=== PATIENT | male | born 1980 | race African-American/Black ===

== ENCOUNTER 2020-12-14 01:18 | Emergency (ER) | payer OTHER ==
[~2020-12-14] VITALS: Ht 180.3 cm; Wt 165.0 kg
--- NOTE | 2020-12-14 01:34 | PHYS DOC ---
General Adult EDM: Chief Complaint: OVERDOSE HPI: HPI: 40-year-old AA male, present inmate from [facility], presents to the ED with concerns for multiple self-inflicted lacerations involving her left wrist and both upper thighs after pt cut himself with a razor blade. Patient's medications were found missing, concern for propanolol and ibuprofen overdose. Pt reports he was trying to kill himself and took his medications "sometime" last night. When asked if anything is bothering him he states "life." Unknown last tetanus. Review of Systems: Review of Systems: Constitutional: Denies fever or chills. [] Eyes: Denies change in visual acuity. [] HENT: Denies nasal congestion or sore throat. [] Respiratory: Denies cough or shortness of breath. [] Cardiovascular: Denies chest pain or edema. [] GI: Denies abdominal pain, nausea, vomiting, bloody stools or diarrhea. [] : Denies dysuria or hematuria Musculoskeletal: Denies back pain or joint pain. [] Integument: Denies rash or crepitus Neurologic: Denies headache, focal weakness or sensory changes. [] Endocrine: Denies polyuria or polydipsia. [] Lymphatic: Denies swollen glands. [] Psychiatric: Denies depression or anxiety. [] Heart Score: Risk Factors: Risk Factors: DM, Current or recent (<one month) smoker, HTN, HLP, family history of CAD, obesity. Risk Scores: Score 0 - 3: 2.5% MACE over next 6 weeks - Discharge Home Score 4 - 6: 20.3% MACE over next 6 weeks - Admit for Clinical Observation Score 7 - 10: 72.7% MACE over next 6 weeks - Early Invasive Strategies Allergies: Allergies: Allergies Coded Allergies Type Severity Reaction Last Updated Verified No Known Drug Allergies 12/14/20 No Physical Exam: PE: Constitutional: Well developed, well nourished, no acute distress, non-toxic appearance, thin HENT: Normocephalic, atraumatic, Eyes: EOMI, conjunctiva normal, no discharge. Neck: Normal range of motion, supple, Cardiovascular: S1/2 present, regular rhythm Lungs & Thorax: Speaking in full sentences, bilateral equal chest rise, no tachypnea or increased work of breathing Abdomen: soft, no tenderness, Skin: Warm, dry, no erythema, no rash. [] Back: No tenderness, no CVA tenderness. [] Extremities: No tenderness, no cyanosis, no edema, very superficial lacerations over left wrist and both upper thighs, see laceration note for details Neurologic: Alert and oriented X 3, normal motor function, normal sensory function, no focal deficits noted. [] Psychologic: Flat affect, judgement normal, mood normal. [] EKG: EK EKG with sinus rhythm, bradycardia 59 bpm, no axis deviation, normal intervals, T wave inversion V2, no ST elevations or ST depressions 0505 EKG was sinus rhythm, bradycardia 54 bpm, no axis deviation, normal intervals, T wave inversion V2, no ST elevations or ST depressions Radiology/Procedures: Radiology/Procedures: IMAGING REPORT Signed PATIENT: LUCIO OLSEN ACCOUNT: [id number] : 1980 LOCATION: ER AGE: 40 SEX: M EXAM STATUS: REG ER ORD. PHYSICIAN: ZEN BARRIOS DO REASON: overdfose? FOREIGN BODY? CUT SELF PROCEDURE: ACUTE ABDOMEN SERIES EXAM: XR ABDOMEN COMP ACUTE 12/14/2020 1:40 AM CLINICAL INDICATION: Overdose or foreign body, cut himself COMPARISON: None TECHNIQUE: AP upright view of the chest FINDINGS: The heart and mediastinum are normal. Lungs are well-expanded and clear. No consolidation, pleural effusion, or pneumothorax. Pulmonary vascularity is normal. The thoracic skeleton is intact. There is a small amount of soft tissue gas in the left supraclavicular region. IMPRESSION: 1. No acute cardiopulmonary abnormality. 2. Small amount of soft tissue gas in the left supraclavicular region. Electronically signed by: Sharonda Azul MD (12/14/2020 2:23 AM) [id number] DICTATED and SIGNED BY: SHARONDA AZUL MD DATE: 12/14/20 [id number] Indication: Left wrist laceration Procedure: The patient was placed in the appropriate position and anesthesia around the 3 cm superficial laceration over distal, ventral wrist with 1% lidocaine. The area was then copiously irrigated. The laceration was closed with 4 sutures of 4-0 nylon. The wound area was then dressed. Total repaired wound length: 3cm. Other Items: none The patient tolerated the procedure . Complications: none -patient has full range of motion of the wrist before and after a laceration repair. very superficial lacerations to both upper outer thighs that were able to Dermabond, approximately 4 cm left thigh and 5 cm right thigh Course & Med Decision Making: Course & Med Decision Making Pertinent Labs and Imaging studies reviewed. (See chart for details) Concern for suspected NSAID and beta-tiburcio overdose -patient with no hypoglycemia, hypotension or bradycardia. Refer to RN regarding medication, dosages and mgs- RN called [facility] and poison ctrl -patient has access to his propanolol and ibuprofen but does not have access to his lithium. Suspected ingestion was between 2315 and 0015. Given timeline - pt has showed no signs or symptoms of beta-blockers toxicity or nsaid toxicity, 6 hours from ingestion time. Per poison ctrl pt can be medically cleared 6 hours after ingestion is asymptomatic. Can follow with psych in [facility] and will be placed on SI precautions. Will discharge home with strict ED return precautions were given for altered mental status, bleeding, n/v, abdominal pain, ams, slow heart rate or hypotension. Encouraged urgent outpatient follow-up with PMD and psychiatry. Life-threatening processes were considered but are low suspicion at this time, given history, physical exam and ED workup. Pt was educated on all prescription medications and adverse effects. All patient's questions were answered and pt was stable at time of discharge. Life/limb-threatening differential includes but is not limited to, end organ damage/sepsis, trauma/abuse/neglect, neurologic deficit, alcohol/drug ingestion, fractures or joint dislocations, neurovascular injuries, toxidrome, suicidal/homicidal ideations plans or attempts, psychosis or mental illness resulting in self neglect and inability to care for self. I spoken with the patient and her caregivers. I explained the patient's cond ition, diagnoses and treatment plan based on the information available to me at this time. I have answered the patient and her caregiver's questions and addressed any concerns. The patient and her caregivers have a good understanding of patient's diagnosis, condition and treatment plan as can be expected at this point. Vital signs have been stable. Patient's condition is stable and appropriate for discharge from the emergency department. Patient will pursue further outpatient evaluation with primary care physician or other designated or consulting physician as outlined in the discharge instructions. The patient and/or caregivers are agreeable to this plan of care and follow-up instructions have been explained in detail. The patient and/or caregivers have received these instructions in written form and have expressed an understanding of the discharge instructions. The patient and/or caregivers are aware that any significant change of condition or worsening of symptoms should prompt immediate return to this or the closest emergency department or call to 911. Neelam Disclaimer: Neelam Disclaimer: This electronic medical record was generated, in whole or in part, using a voice recognition dictation system. Departure Departure Impression: Primary Impression: Feeling suicidal Additional Impressions: Laceration of wrist, left Laceration of thigh, left Laceration of thigh, right Need for Tdap vaccination Disposition: 01 DC HOME SELF CARE/HOMELESS Condition: STABLE Referrals: NO PCP (PCP) Patient Instructions: Laceration Care, Adult, Suicide, Helping Someone Who is Suicidal Additional Instructions: EMERGENCY DEPARTMENT GENERAL DISCHARGE INSTRUCTIONS Thank you for coming to [facility] Emergency Department (ED) today and trusting us with you care. We trust that you had a positive experience in our Emergency Department. If you wish to speak to the department management, you may call the Director at [phone]. YOUR FOLLOW UP INSTRUCTIONS ARE FOLLOWS: 1. Do you have a private Doctor? If you do not have a private doctor, please ask for a resource list of physicians or clinics that may be able to assist you with follow up care. 2. The Emergency Physicain has interpreted your x-rays. The X-Ray specialist will also review them. If there is a change in the findings, you will be notified in 48 hours when at all possible. 3. A lab test or culture has been done, your results will be reviewed and you will be notified if you need a change in treatment. ADDITIONAL INSTRUCTIONS AND INFORMATION: 1. Your care today has been supervised by a physician who is specially trained in emergency care. Many problems require more than one evaluation for a complete diagnosis and treatment. We recommend that you schedule your follow up appointment as recomme nded to ensure complete treatment of you illness or injury. If you are unable to obtain follow up care and continue to have a problem, or if your condition worsens, we recommend that you return to the ED. 2. We are not able to safely determine your condition over the phone nor are we able to give sound medical advice over the phone. For these safety reasons, if you call for medical advice we will ask you to come to the ED for further evaluation. 3. If you have any questions regarding these discharge instructions please call the ED at [phone]. SAFETY INFORMATION: In the interest of safety, wellness, and injury prevention; we encourage you to wear your sealbelt, if you smoke; quite smoking, and we encourage family to use a protective helmet for bicycling and other sporting events that present an increased risk for head injury. IF YOUR SYMPTOMS WORSEN OR NEW SYMPTOMS DEVELOP, OR YOU HAVE CONCERNS ABOUT YOUR CONDITION; OR IF YOUR CONDITION WORSENS WHILE YOU ARE WAITING FOR YOUR FOLLOW UP APPOINTMENT; EITHER CONTACT YOUR PRIMARY CARE DOCTOR, THE PHYSICIAN WHOSE NAME AND NUMBER YOU WERE GIVEN, OR RETURN TO THE ED IMMEDIATELY. ZEN BARRIOS DO Dec 14, 2020 01:34
--- NOTE | 2020-12-14 02:25 | RAD ---
EXAM: XR ABDOMEN COMP ACUTE 12/14/2020 1:40 AM CLINICAL INDICATION: Overdose or foreign body, cut himself COMPARISON: None TECHNIQUE: AP upright view of the chest FINDINGS: The heart and mediastinum are normal. Lungs are well-expanded and clear. No consolidatio n, pleural effusion, or pneumothorax. Pulmonary vascularity is normal. The thoracic skeleton is int act. There is a small amount of soft tissue gas in the left supraclavicular region. IMPRESSION: 1. No acute cardiopulmonary abnormality. 2. Small amount of soft tissue gas in the left supraclavicular region. Electronically signed by: Sharonda Azul MD (12/14/2020 2:23 AM) [id number]
[2020-12-14] MEDS ORDERED: DIPH,PERTUSS(ACELL),TET VAC/PF 0.5 ML SYRINGE. VAX IM ONE (02:30)
[2020-12-14 02:36] LABS: BARBITURATES NEG (NEG); BENZODIAZEPINES NEG (NEG); CANNABINOIDS NEG (NEG); COCAINE NEG (NEG); METHADONE NEG (NEG); OPIATES NEG (NEG); PHENCYCLIDINE NEG (NEG)
[2020-12-14 02:37] LABS: BASO % 1 % (0-3); EOS # 0.1 x10^3/uL (0.0-0.7); EOS % 1 % (0-3); HEMATOCRIT 39.1 % (39.0-53.0); HEMOGLOBIN 13.6 g/dL (13.0-17.5); LYMPH # 1.4 x10^3/uL (1.0-4.8); LYMPH % 24 % (24-48); MEAN CORPUSCULAR HEMOGLOBIN 29 pg (25-35); MEAN CORPUSCULAR HGB CONC 35 g/dL (31-37); MEAN CORPUSCULAR VOLUME 85 fL (79-100); MONO # 0.5 x10^3/uL (0.0-1.1); MONO % 8 % (0-9); NEUT % 67 % (31-73); PLATELET COUNT 213 x10^3/uL (140-400); RED BLOOD COUNT 4.63 x10^6/uL (4.30-5.70); RED CELL DISTRIBUTION WIDTH 13.3 % (11.5-14.5)
[2020-12-14 02:40] LABS: CALCIUM 8.7 mg/dL (8.5-10.1); CREATININE 0.7 mg/dL (0.7-1.3); GFR 152.7; LI < 0.2 mmol/L (0.6-1.2); POTASSIUM 3.3 mmol/L (3.5-5.1)
[2020-12-14 02:44] LABS: ETHANOL < 10 mg/dL (0-10); SALIC < 2.8 mg/dL (2.8-20.0)
[2020-12-14 02:45] LABS: ACETAMIN < 2 mcg/ml (10-30)
[2020-12-14] MEDS ORDERED: LIDOCAINE 1% Multi-Dose 20 ML VIAL. INJ ONE (02:45)
[2020-12-14 02:46] LABS: ALBUMIN 4.2 g/dL (3.4-5.0); ALBUMIN/GLOBULIN RATIO 1.4 (1.0-1.7); TOTAL BILIRUBIN 0.4 mg/dL (0.2-1.0); TOTAL PROTEIN 7.3 g/dL (6.4-8.2)
[2020-12-14 02:58] LABS: AMPHETAMINE/METHAMPHETAMINE NEG (NEG)
[2020-12-14 05:27] VITALS: BP 145/83
--- NOTE | 2020-12-17 07:41 | EKG ---
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
--- NOTE | 2020-12-18 15:37 | EKG ---
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
== END 2020-12-14 06:20 | disposition home or self-care (01) ==
LOC: ER 01:18 → EEVIPCON 01:18 → ER 06:20
DX: S61.512A Laceration without foreign body of left wrist, initial encounter (principal); S71.112A Laceration without foreign body, left thigh, initial encounter; S71.111A Laceration without foreign body, right thigh, initial encounter; X83.8XXA Intentional self-harm by other specified means, initial encounter; Y93.89 Activity, other specified; Y92.89 Other specified places as the place of occurrence of the external cause; Y99.8 Other external cause status
CPT/HCPCS: 12004; 36415; 74022; 80053; 80178; 80307; 80329; 82962; 83735; 85025; 90471; 90715; 93005; 99285; G0480; J3490